=== PATIENT | female | born 1945 | race Caucasian/White ===

== ENCOUNTER → 2022-08-21 12:36 | Outpatient (CLI) | payer MEDICARE, SELFPAY ==
--- NOTE | 2022-08-21 | DI.MG.S_ITS ---
BILATERAL DIGITAL SCREENING MAMMOGRAM 3D/2D WITH CAD: 08/21/2022 CLINICAL: Baseline exam. Routine screening. No prior exams were available for comparison. Both breasts are almost entirely fatty (category a/<25% glandular tissue). Current study was also evaluated with a Computer Aided Detection (CAD) system. No significant masses, calcifications, or other findings are seen in either breast. IMPRESSION: NEGATIVE There is no mammographic evidence of malignancy. A 1 year screening mammogram is recommended. Based on the Tyrer Cuzick model (a risk assessment model) the patient's lifetime risk is 1.2% and her 10 year risk is 0.0%. According to the ACR, ACS, and NCCN guidelines, an annual breast MRI exam along with mammogram is recommended if the patient's lifetime risk is 20% or greater. This exam was interpreted at Station ID: [id number]. NOTE: For mammograms, a report in lay terms will be sent to the patient. Approximately 15% of breast malignancies will not be visualized mammographically. In the management of a palpable breast mass, a negative mammogram must not discourage biopsy of a clinically suspicious lesion. Electronically Signed By: Bobby Servin M.D. acr/nael:08/21/2022 14:19:42 letter sent: Normal Exam ACR BI-RADS Category 1: Negative [id number]
== END ==
PROVIDERS: Visit Provider Nurse Practitioner Family
DX: Z12.31 Encounter for screening mammogram for malignant neoplasm of breast (principal)
CPT/HCPCS: 77063; 77067

== ENCOUNTER → 2022-08-22 13:35 | Outpatient (CLI) | payer MEDICARE, SELFPAY ==
--- NOTE | 2022-08-22 13:37 | DI.RAD.S_ITS ---
PROCEDURE: XR CHEST 2V INDICATIONS: weight loss TECHNIQUE: 2 views of the chest were acquired. COMPARISON: None. FINDINGS: Surgical changes and devices: None. Lungs and pleura: Lungs are clear. No pleural effusions or pneumothorax. Mediastinum: Mediastinal contours are normal. Heart size is normal. Bones and chest wall: No suspicious bony abnormalities. Soft tissues appear unremarkable. IMPRESSION: Normal for age, source of current weight loss symptoms is not seen. Dictated by: Carlos Enrique Llanos M.D. on 08/22/2022 at 14:25 Approved by: Carlos Enrique Llanos M.D. on 08/22/2022 at 14:25
[2022-08-22 14:09] LABS: Add Manual Diff / Slide Review NO; Basophils Absolute Auto 100 /uL (0-100); Basophils Percent Auto 0.9 % (0-2); Eosinophils Absolute Auto 100 /uL (0-450); Eosinophils Percent Auto 1.6 % (2-4); Hematocrit 36.6 % (36-46); Hemoglobin 12.7 g/dL (12.0-16.0); Lymphocytes Absolute Auto 1700 /uL (1100-4500); Lymphocytes Percent Auto 24.7 % (25-40); Mean Corpuscular HGB Conc 34.7 % (30-36); Mean Corpuscular Hemoglobin 31.6 PG (26-34); Mean Corpuscular Volume 91.1 fL (80-100); Monocytes Absolute Auto 600 /uL (0-900); Monocytes Percent Auto 8.2 % (3-14); Neutrophils Absolute Auto 4400 /uL (1500-7000); Neutrophils Percent Auto 64.6 % (50-75); Platelet Count 305 X10^3/uL (150-400); Red Blood Cell Count 4.02 X10^6/uL (4.0-5.2); Red Cell Distribution Width 13.5 % (11.6-14.8); White Blood Cell Count 6.8 X10^3/uL (4.5-11.0)
[2022-08-22 14:13] LABS: Hemoglobin A1C% w Est Avg Glu 5.4 % (4.0-6.0)
[2022-08-22 14:31] LABS: Alanine Aminotransferase 29 IU/L (<35); Albumin 4.8 g/dL (3.5-5.0); Albumin Globulin Ratio 1.7 (1.0-2.8); Alkaline Phosphatase 67 U/L (38-126); Aspartate Aminotransferase 35 IU/L (14-36); BUN Creatinine Ratio 22.8 (6-22); Bilirubin Total 0.8 mg/dL (0.2-1.3); Blood Urea Nitrogen 13 mg/dL (7-17); Calcium 9.2 mg/dL (8.4-10.2); Carbon Dioxide 26 mmol/L (22-32); Chloride 98 mmol/L (98-107); Cholesterol 196 mg/dL (140-199); Estimated Glomerular Filt Rate > 60 mL/min (>60); Globulin 2.8 g/dL (1.7-4.1); Glucose 75 mg/dL (80-110); HEMOLYSIS < 15 (0-50); Potassium 4.4 mmol/L (3.4-5.1); Sodium 133 mmol/L (137-145); Total Protein 7.6 g/dL (6.3-8.2); Triglycerides 98 mg/dL (35-150)
[2022-08-22 15:08] LABS: HDL Cholesterol 111 mg/dL (40-60); LDL Cholesterol Calculated 65 mg/dL (<100)
[2022-08-22 15:39] LABS: TSH w/ Reflex to FT4 1.47 uIU/mL (0.47-4.68)
== END ==
PROVIDERS: PCP Family Medicine; Referring Provider Family Medicine; Visit Provider Family Medicine
DX: R63.4 Abnormal weight loss (principal); E78.5 Hyperlipidemia, unspecified; E03.9 Hypothyroidism, unspecified; F12.90 Cannabis use, unspecified, uncomplicated; Z13.1 Encounter for screening for diabetes mellitus; Z13.6 Encounter for screening for cardiovascular disorders; Z78.9 Other specified health status
CPT/HCPCS: 36415; 71046; 80053; 80061; 83036; 84443; 85025

== ENCOUNTER → 2023-02-04 14:14 | Outpatient (CLI) | payer MEDICARE, SELFPAY ==
--- NOTE | 2023-02-04 14:29 | DI.RAD.S_ITS ---
Bone Density Report Name: IRINEO BARCENAS Age: 78 Sex: Female Ethnicity: White Date of : 1945 Indication: postmenopausal; screening for osteoporosis; Referring Provider: IGOR HUYNH Study: Bone densitometry was performed. Exam Date: February 04, 2023 Accession number: [id number] Bone Density: Region BMD T-score Z-score Classification AP Spine(L1-L4) 1.004 -0.4 2.2 Normal Femoral Neck (Left) 0.773 -0.7 1.6 Normal Total Hip (Left) 0.791 -1.2 0.8 Osteopenia Total Forearm (Left) 0.469 -2.0 0.8 Osteopenia 1/3 Forearm (Left) 0.612 -1.4 1.6 Osteopenia UD Forearm (Left) 0.393 -0.9 1.3 Normal World Health Organization criteria for BMD impression classify patients as: Normal (T-score at or above -1.0), Osteopenia (T-score between -1.0 and -2.5), or Osteoporosis (T-score at or below -2.5). 10-year Fracture Risk: FRAX not reported because: Treated for osteoporosis Impression: The patient has low bone mass, based on the Left Total Hip T-score. Discussion: It is important to ask patients whether they are taking their medications and to encourage continued and appropriate compliance with their osteoporosis therapies to reduce fracture risk. It is also important to review their risk factors and encourage appropriate calcium and vitamin D intakes, exercise, fall prevention and other lifestyle measures. Follow-Up: Consider a repeat BMD and Vertebral Fracture Assessment (VFA) exam in 2 years or sooner if medically necessary, to reassess this patient's status. Reported by: ELICIA HART M.D. on 02/04/2023 3:22:00 PM.
== END ==
PROVIDERS: PCP Family Medicine; Referring Provider Physician Assistant; Visit Provider Physician Assistant
DX: M85.88 Other specified disorders of bone density and structure, other site; S62.609A Fracture of unspecified phalanx of unspecified finger, initial encounter for closed fracture; S82.001A Unspecified fracture of right patella, initial encounter for closed fracture; N95.8 Other specified menopausal and perimenopausal disorders; E21.3 Hyperparathyroidism, unspecified
CPT/HCPCS: 77080; 77081

== ENCOUNTER → 2023-05-05 12:12 | Outpatient (CLI) | payer MEDICARE, SELFPAY | PROVIDERS: PCP Family Medicine; Referring Provider Family Medicine; Visit Provider Family Medicine | DX: R06.02 Shortness of breath (principal) | CPT/HCPCS: 94060 ==

== ENCOUNTER → 2024-03-16 13:33 | Outpatient (CLI) | payer MEDICARE, SELFPAY ==
[2024-03-16 14:31] LABS: Alanine Aminotransferase 26 IU/L (<35); Albumin 4.6 g/dL (3.5-5.0); Albumin Globulin Ratio 1.4 (1.0-2.8); Alkaline Phosphatase 71 U/L (38-126); Aspartate Aminotransferase 43 IU/L (14-36); Bilirubin Total 0.6 mg/dL (0.2-1.3); Blood Urea Nitrogen 11 mg/dL (7-17); Calcium 9.4 mg/dL (8.4-10.2); Carbon Dioxide 28 mmol/L (22-32); Chloride 97 mmol/L (98-107); Cholesterol 201 mg/dL (140-199); Estimated Glomerular Filt Rate > 60 mL/min (>60); Globulin 3.4 g/dL (1.7-4.1); Glucose 91 mg/dL (80-110); HDL Cholesterol 88 mg/dL (40-60); HEMOLYSIS < 15 (0-50); LDL Cholesterol Calculated 99 mg/dL (<100); Potassium 4.3 mmol/L (3.4-5.1); Sodium 129 mmol/L (137-145); Triglycerides 70 mg/dL (35-150)
[2024-03-16 16:10] LABS: TSH w/ Reflex to FT4 0.84 uIU/mL (0.47-4.68)
== END ==
PROVIDERS: PCP Family Medicine; Referring Provider Family Medicine; Visit Provider Family Medicine
DX: Z00.00 Encounter for general adult medical examination without abnormal findings (principal); E03.9 Hypothyroidism, unspecified; I10 Essential (primary) hypertension; J44.9 Chronic obstructive pulmonary disease, unspecified; Z78.9 Other specified health status
CPT/HCPCS: 80053; 80061; 84443

== ENCOUNTER → 2024-09-14 13:29 | Outpatient (CLI) | payer MEDICARE, SELFPAY ==
--- NOTE | 2024-09-14 13:30 | DI.RAD.S_ITS ---
PROCEDURE: XR SHOULDER LT MIN 2V INDICATIONS: pain, decreased rom x 4 month TECHNIQUE: Three views of the left shoulder were acquired. COMPARISON: None. FINDINGS: Bones: There are no osseous abnormalities. Acromioclavicular and glenohumeral joints: Normal in width and alignment without arthritic change Soft tissues: No soft tissue swelling, calcification or mass. IMPRESSION: Normal shoulder Dictated by: Jason Blake M.D. on 09/15/2024 at 12:34 Approved by: Jason Blake M.D. on 09/15/2024 at 12:35
== END ==
PROVIDERS: PCP Family Medicine; Referring Provider Family Medicine; Visit Provider Family Medicine
DX: J44.9 Chronic obstructive pulmonary disease, unspecified (principal); M25.512 Pain in left shoulder
CPT/HCPCS: 73030

== ENCOUNTER → 2024-09-29 13:46 | Outpatient (CLI) | payer MEDICARE, SELFPAY ==
--- NOTE | 2024-09-29 13:48 | DI.MRI.S_ITS ---
PROCEDURE: MR SHOULDER LT WO CON INDICATIONS: PAIN / DECREASED ROM x 4MO TECHNIQUE: Noncontrast oblique coronal T2 fast spin echo with fat saturation, oblique sagittal T1 spin echo and T2 fast spin echo with fat saturation, axial T1 spin echo and T2 fast spin echo with fat saturation through the shoulder. COMPARISON: None. FINDINGS: Image quality: Excellent. Rotator cuff: Moderate grade articular surface partial-thickness tear involving distal supraspinatus at its insertion on the humeral head is seen extending to musculotendinous junction. Low-grade articular surface partial-thickness tear involving distal infraspinatus at its insertion on humeral head is also seen. Low-grade intrasubstance partial-thickness tear involving superior to mid fibers of distal subscapularis is seen. No full-thickness rotator cuff tendon rupture. Sagittal images demonstrate moderate supraspinatus muscle atrophy. Bones and bursae: No bone marrow contusions or fractures. Moderate acromioclavicular joint osteoarthritic changes are seen with joint space narrowing and downward osteophyte formation depressing the musculotendinous junction of supraspinatus. Solt-if-yxukxeey glenohumeral joint osteoarthritic changes also noted. Type 2 acromion without an os acromiale. Moderate amount of joint effusion and subacromial subdeltoid bursal fluid, no loose bodies. Capsule and soft tissues: Extensive signal abnormality and fraying throughout superior anterior glenoid labrum is seen suggestive of extensive superior anterior labral tear. Low to moderate grade partial-thickness tear involving proximal intra-articular portion of long head of biceps is seen. IMPRESSION: 1. Moderate grade articular surface partial-thickness tear involving distal supraspinatus extending to musculotendinous junction. Low-grade articular surface partial-thickness tear involving distal infraspinatus. Low to moderate grade intrasubstance partial-thickness tear involving distal subscapularis. No full-thickness rotator cuff tendon rupture. Moderate supraspinatus muscle atrophy. 2. Moderate acromioclavicular joint and glenohumeral joint osteoarthritis. No fracture or dislocation. Moderate joint effusion and subacromial subdeltoid bursal fluid, no loose bodies. 3. Suggestion of superior anterior glenoid labral tear. 4. Low to moderate grade intrasubstance partial-thickness tear involving proximal intra-articular portion of long head of biceps.. Dictated by: Socrates Marsh M.D. on 10/01/2024 at 19:49 Approved by: Socrates Marsh M.D. on 10/01/2024 at 19:53
== END ==
PROVIDERS: PCP Family Medicine; Referring Provider Family Medicine; Visit Provider Family Medicine
DX: M75.112 Incomplete rotator cuff tear or rupture of left shoulder, not specified as traumatic (principal); M19.012 Primary osteoarthritis, left shoulder; S46.112A Strain of muscle, fascia and tendon of long head of biceps, left arm, initial encounter; M25.412 Effusion, left shoulder; M25.512 Pain in left shoulder
CPT/HCPCS: 73221

== ENCOUNTER → 2025-03-22 13:50 | Outpatient (CLI) | payer MEDICARE, SELFPAY ==
--- NOTE | 2025-03-22 13:59 | DI.RAD.S_ITS ---
PROCEDURE: XR FOOT RT MIN 3V INDICATIONS: pain laterally TECHNIQUE: 3 views of the foot were acquired. COMPARISON: None. 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 There is also mild to moderate degeneration throughout all of the midfoot joints. Soft tissues: Plantar soft tissue swelling over the calcaneus likely represents edema IMPRESSION: Degeneration Dictated by: Jason Blake M.D. on 03/23/2025 at 13:15 Approved by: Jason Blake M.D. on 03/23/2025 at 13:16
[2025-03-22 14:50] LABS: Hematocrit 39.1 % (36-46); Hemoglobin 13.2 g/dL (12.0-16.0); Mean Corpuscular HGB Conc 33.8 % (30-36); Mean Corpuscular Hemoglobin 31.3 PG (26-34); Mean Corpuscular Volume 92.5 fL (80-100); Platelet Count 319 X10^3/uL (150-400)
[2025-03-22 15:28] LABS: Alanine Aminotransferase 27 IU/L (<35); Albumin 4.9 g/dL (3.5-5.0); Albumin Globulin Ratio 1.8 (1.0-2.8); Alkaline Phosphatase 74 U/L (38-126); Blood Urea Nitrogen 14 mg/dL (7-17); Calcium 9.4 mg/dL (8.4-10.2); Carbon Dioxide 25 mmol/L (22-32); Chloride 95 mmol/L (98-107); Cholesterol 194 mg/dL (140-199); Estimated Glomerular Filt Rate > 60 mL/min (>60); Globulin 2.8 g/dL (1.7-4.1); Glucose 84 mg/dL (70-99); HDL Cholesterol 93 mg/dL (40-60); HEMOLYSIS < 15 (0-50); Potassium 4.6 mmol/L (3.4-5.1); Sodium 129 mmol/L (137-145); Total Protein 7.7 g/dL (6.3-8.2); Triglycerides 79 mg/dL (35-150)
[2025-03-22 15:52] LABS: TSH w/ Reflex to FT4 0.51 uIU/mL (0.47-4.68)
== END ==
LOC: RAD 13:58
PROVIDERS: PCP Family Medicine; Referring Provider Family Medicine; Visit Provider Family Medicine
DX: Z00.00 Encounter for general adult medical examination without abnormal findings (principal); M79.671 Pain in right foot; E03.8 Other specified hypothyroidism; Z78.9 Other specified health status; E78.5 Hyperlipidemia, unspecified; J44.9 Chronic obstructive pulmonary disease, unspecified; M19.071 Primary osteoarthritis, right ankle and foot
CPT/HCPCS: 36415; 73630; 80053; 80061; 84443; 85027